=== PATIENT | female | born 1990 | race Caucasian/White ===

== ENCOUNTER 2017-10-03 19:19 | Emergency (ER) | payer BC ==
[2017-10-03 19:31] VITALS: BP 127/67; PULSE 94; TEMP 99.7; BMI 21.2
--- NOTE | 2017-10-03 20:33 | PDOC ---
History of Present Illness - General History Source: Patient, Family, Significant Other Exam Limitations: No Limitations - History of Present Illness Initial Comments: 10/03/17 20:46 The patient is a 27 year old female, accompanied by , with no significant past medical history, who presents to the emergency department with , sore throat, productive cough, generalized body aches, shortness of breath and subjective fever beginning this morning. The patient reports she has difficulty taking a deep breath secondary to pain on inspiration. The patient reports her (present in the ED) has similar symptoms beginning approx. 1 week ago. The patient reports visiting her niece this past weekend who was diagnosed with Step throat a couple of weeks ago. The patient reports she has a 3 month old baby at home who is up to date on vaccinations. She denies recent, chills, headache or dizziness. She denies recent nausea, vomit, diarrhea or constipation. She denies recent dysuria, frequency, urgency or hematuria. She denies recent chest pain. Allergies: NKA Primary Care Physician: Dr. Farzaneh Mathew <Maik Skinner - Last Filed: 10/03/17 21:06> <Tessa De Leon - Last Filed: 10/03/17 21:12> - General Chief Complaint: Cold Symptoms Stated Complaint: COUGH/SOB Time Seen by Provider: 10/03/17 19:21 Past History <Maik Skinner - Last Filed: 10/03/17 21:06> - Past Medical History COPD: No - Suicide/Smoking/Psychosocial Hx Smoking History: Never smoked Have you smoked in the past 12 months: No Number of Cigarettes Smoked Daily: 0 Information on smoking cessation initiated: No Hx Alcohol Use: No Drug/Substance Use Hx: No Substance Use Type: None <Tessa De Leon - Last Filed: 10/03/17 21:12> - Past Medical History Allergies/Adverse Reactions: Allergies Allergy/AdvReac Type Severity Reaction Status Date / Time No Known Allergies Allergy Unverified 10/03/17 19:32 Home Medications: Ambulatory Orders Oseltamivir Phosphate [Tamiflu] 75 mg PO BID #10 capsule 10/03/17 Review of Systems - Review of Systems Comments:: 10/03/17 20:47 CONSTITUTIONAL: Present: +Subjective fever. Absent: no chills, EYES: Absent: visual changes ENT: Present: +Sore throat Absent: ear pain CARDIOVASCULAR: Absent: chest pain, no palpitations RESPIRATORY: Present: +Productive cough. +SOB. GI: Absent: abdominal pain, no nausea, no vomiting, no constipation, no diarrhea GENITOURINARY: Absent: dysuria, no frequency, no hematuria MUSKULOSKELETAL: Present: +Generalized body aches. SKIN: Absent: rash NEURO: Absent: headache <Rm Skinnerian - Last Filed: 10/03/17 21:06> *Physical Exam - Vital Signs Last Vital Signs Temp Pulse Resp BP Pulse Ox 99.7 F H 94 H 14 127/67 100 10/03/17 19:28 10/03/17 19:28 10/03/17 19:28 10/03/17 19:28 10/03/17 19:28 - Physical Exam Comments: 10/03/17 21:06 GENERAL: The patient is awake, alert, and fully oriented, in no acute distress. HEAD: Normal with no signs of trauma. EYES: Pupils equal, round and reactive to light, extraocular movements intact, sclera anicteric, conjunctiva clear with no pallor. ENT: +Pharyngeal erythema without exudates. Ears normal, nares patent, oropharynx clear without exudates. Moist mucous membranes. NECK: Normal range of motion, supple without lymphadenopathy, JVD, or masses. LUNGS: Breath sounds equal, clear to auscultation bilaterally. No wheeze/ crackles. HEART: Regular rate and rhythm, normal S1 and S2 without murmur or rub. ABDOMEN: Soft/nontender/nondistended. BS wnl. No guarding or rebound. No palpable masses. No hepatosplenomegaly. EXTREMITIES: Normal range of motion, no edema. No clubbing or cyanosis. No cords, erythema, or tenderness. NEUROLOGICAL: Cranial nerves II through XII grossly intact. Normal speech, normal gait. PSYCH: Normal mood, normal affect. SKIN: Warm, Dry, normal turgor, no rashes or lesions noted. <Maik Skinner - Last Filed: 10/03/17 21:06> - Vital Signs Last Vital Signs Temp Pulse Resp BP Pulse Ox 99.7 F H 94 H 14 127/67 100 10/03/17 19:28 10/03/17 19:28 10/03/17 19:28 10/03/17 19:28 10/03/17 19:28 <Tessa De Leon - Last Filed: 10/03/17 21:12> *DC/Admit/Observation/Transfer - Attestations Scribe Attestion: 10/03/17 20:48 Documentation prepared by Maik Skinner, acting as medical supervisor for Tessa De Leon MD. <Maik Skinner - Last Filed: 10/03/17 21:06> <Tessa De Leon - Last Filed: 10/03/17 21:12> Diagnosis at time of Disposition: Acute viral syndrome - Discharge Dispostion Disposition: HOME Condition at time of disposition: Stable - Referrals Referrals: Farzaneh aMthew MD [Primary Care Provider] - - Patient Instructions Printed Discharge Instructions: DI for Viral Syndrome Additional Instructions: Rest; drink plenty of fluids Tamiflu 75 mg twice daily for 5 days Do not breast feed while on Tamiflu Return or see her doctor if you have shortness of breath or high fever - Post Discharge Activity
== END 2017-10-03 21:21 | disposition home or self-care (01) ==
LOC: FER 19:19
DX: B34.9 Viral infection, unspecified (principal)
CPT/HCPCS: 87070; 87430; 87804; 99282-25

== ENCOUNTER 2018-08-06 12:41 | Emergency (ER) | payer BC ==
--- NOTE | 2018-08-06 13:14 | PDOC ---
History of Present Illness - General Stated Complaint: VAGINAL BLEEDING Time Seen by Provider: 08/06/18 13:00 - History of Present Illness Initial Comments: 08/06/18 13:11 28 yo , LMP 05/28/18, at 10 wga, confirmed by TVUS with no significant pmh who p/w vaginal bleeding in . 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 Reports blood trickling down leg. Patient last intercourse yesterday evening with . Denies dyspareurnia, or vaginal bleeding at that time. Patient reports HGUO. Denies abdominal trauma. Patient denies N/V, F,C, CP, SOB, urinary complaints, abdominal pain, diarrhea, constipation, hematuria, vaginal discharge/burning/itching, BPR, lightheadedness, weakness, sensory changes. PMHx: as noted above. H/o x 1. ROS: as noted SHx: Denies Etoh, IVDA, Tobacco use Allergies: NKDA Past History - Past Medical History Allergies/Adverse Reactions: Allergies Allergy/AdvReac Type Severity Reaction Status Date / Time No Known Allergies Allergy Unverified 10/03/17 19:32 Home Medications: Ambulatory Orders Cephalexin Monohydrate [Keflex -] 500 mg PO BID #13 capsule MDD 2 tab 08/06/18 95/Iron Fum/Folic/Dha [ + Dha Combo Pack] 1 each PO DAILY 08/06 COPD: No - Suicide/Smoking/Psychosocial Hx Smoking History: Never smoked Have you smoked in the past 12 months: No Number of Cigarettes Smoked Daily: 0 Hx Alcohol Use: No Drug/Substance Use Hx: No Substance Use Type: None Review of Systems - Review of Systems Comments:: 08/06/18 13:13 GENERAL/CONSTITUTIONAL: No fever or chills. No weakness. HEAD, EYES, EARS, NOSE AND THROAT: No change in vision. No ear pain or discharge. No sore throat. CARDIOVASCULAR: No chest pain or shortness of breath RESPIRATORY: No cough, wheezing, or hemoptysis. GASTROINTESTINAL: No nausea, vomiting, diarrhea or constipation. GENITOURINARY: + Vaginal bleeding. No dysuria, frequency, or change in urination. MUSCULOSKELETAL: No joint or muscle swelling or pain. No neck or back pain. SKIN: No rash NEUROLOGIC: No headache, vertigo, loss of consciousness, or change in strength/ sensation. ENDOCRINE: No increased thirst. No abnormal weight change HEMATOLOGIC/LYMPHATIC: No anemia, easy bleeding, or history of blood clots. ALLERGIC/IMMUNOLOGIC: No hives or skin allergy. *Physical Exam - Physical Exam Comments: 08/06/18 13:13 GENERAL: Awake, alert, and fully oriented, in no acute distress HEAD: No signs of trauma, normocephalic, atraumatic EYES: PERRLA, EOMI, sclera anicteric, conjunctiva clear ENT: Hearing grossly normal, nares patent, oropharynx clear without exudates. Moist mucosa NECK: Normal ROM, supple, no lymphadenopathy, JVD, or masses LUNGS: No distress, speaks full sentences, clear to auscultation bilaterally HEART: Regular rate and rhythm, normal S1 and S2, no murmurs, rubs or gallops, peripheral pulses normal and equal bilaterally. ABDOMEN: Soft, nontender, normoactive bowel sounds. No guarding, no rebound. No masses GENITOURINARY: Nml appearing external genitalia. Moderate blood in vaginal vault , with absent pooling. Cervical os closed. Absent CMT on BM. Neg adenexal ttp. EXTREMITIES : Normal inspection, Normal range of motion, no edema. No clubbing or cyanosis. SKIN: Warm, Dry, normal turgor, no rashes or lesions noted ED Treatment Course - LABORATORY CBC & Chemistry Diagram: 08/06/18 13:40 08/06/18 13:40 Medical Decision Making - Medical Decision Making 08/06/18 13:43 28 yo , LMP 05/28/18, at 10 wga, confirmed by TVUS with no significant pmh who p/w vaginal bleeding in . VSS, AF. + Blood in vaginal vault. Cervical os closed. Will assess for viable IUP. Will consider threatened , placenta previa, ectopic , HUGO. Patient with absent evidence of hypovolemia or poor perfusion. Keyboard Instrument Repairer Juan Anne. Ed Course: CBC, CMP, HCG, T&S, UA NS 08/06/18 13:48 08/06/18 14:55 CBC: 11.6 CBC,CMP: Unremarkable HC 08/06/18 15:10 Transabdominal U/S: FHR 185, 10 w4d, mild to mod HUGO. 08/06/18 15:27 Called [facility] , awaiting call back 08/06/18 15:28 Dr. Juan Shah not in office. Dr. Artur Dorantes made aware, agrees U/S and patient status stable. Patient to f/u with Keyboard Instrument Repairer this week. Preferably f/u Sunday or early next week. UA: Trace LE, 4 WBC, Keflex sent to pharmacy Patient stable and ready for d/c with return precautions. Patient agrees to f/u with Keyboard Instrument Repairer. *DC/Admit/Observation/Transfer Diagnosis at time of Disposition: Vaginal bleeding - Discharge Dispostion Condition at time of disposition: Stable - Referrals Referrals: Farzaneh Mathew MD [Primary Care Provider] - - Patient Instructions Printed Discharge Instructions: DI for Vaginal Bleeding Additional Instructions: Please return to the emergency department with any new or worsening symptoms or concerns. Please follow up with your primary care physician within 72 hours. Please f/u with Keyboard Instrument Repairer this week or next week. Please take Keflex two times a day. - Post Discharge Activity - Attestations Physician Attestion: 08/06/18 13:14 I attest to the information provided in this note.
[2018-08-06 13:15] VITALS: TEMP 97.9; BMI 22.8
[2018-08-06] MEDS ORDERED: SODIUM CHLORIDE 500 ML IV STA (13:23)
[2018-08-06 13:46] LABS: BASO % 0.4 % (0-2.0); EOS % 0.3 % (0-4.5); HEMATOCRIT 40.3 % (32.4-45.2); HEMOGLOBIN 13.1 GM/dL (10.7-15.3); LYMPH % 15.8 % (8-40); MCH 27.2 pg (25.7-33.7); MCHC 32.6 g/dl (32.0-36.0); MEAN CELL VOLUME 83.5 fl (80-96); MEAN PLT VOLUME 8.9 fl (7.5-11.1); NEUT % 79.5 % (42.8-82.8); PLATELET COUNT 215 K/MM3 (134-434); RBC 4.83 M/mm3 (3.60-5.2); RDW 13.2 % (11.6-15.6); WHITE BLOOD COUNT 11.6 K/mm3 (4.0-10.0)
--- NOTE | 2018-08-06 14:48 | PDOC ---
Attending Attestation - Resident Resident Name: Quintin Sky - ED Attending Attestation I have performed the following: I have examined & evaluated the patient, The case was reviewed & discussed with the resident, I agree w/resident's findings & plan, Exceptions are as noted - HPI HPI: 08/06/18 14:43 The patient is a 28 year old female, , approximately 10 weeks , with a no significant past medical history who presents to the emergency department with family for evaluation of vaginal bleeding in . She states she felt blood trickling down her leg about 20 minutes prior to arrival. She denies having trauma or recent sexual intercourse. She denies abdominal pain or cramping. LMP 05/28/18. She reportedly had normal US for this current . The patient denies chest pain, shortness of breath, headache and dizziness. The patient denies fever, chills, nausea, vomit, diarrhea and constipation. The patient denies dysuria, frequency, urgency and hematuria. 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 Vitals wnl, exam with some dark blood in vaginal vault, but no pooling per Dr. Sky. Labs wnl. UA and US pending. Likely threatened ab vs subchorionic hemorrhage. Pt comfortable now, no further bleeding in ED. 08/06/18 17:18 US with 11week preg with normal FHR +subchorionic hematoma Dr. Sky has discussed with pt's OB, recommends outpt f/u, nothing to do for now REsults discussed with pt and her UA with trace LE, 4 WBCs, possible mild UTI WIll treat with keflex Pt is well appearing, no further bleeding in the ED Requests DC home I discussed the physical exam findings, ancillary test results and final diagnoses with the patient. I answered all of the patient's questions. The patient was satisfied with the care received and felt comfortable with the discharge plan and treatment plan. The patient will call their primary care physician within 24 hours to arrange follow-up and will return to the Emergency Department with any new, persistent or worsening symptoms.
[2018-08-06 14:52] LABS: ALBUMIN 3.8 g/dl (3.4-5.0); ALK PHOS 60 U/L (45-117); ANION GAP 7 MMOL/L (8-16); BILIRUBIN,TOTAL 0.8 mg/dL (0.2-1); BLOOD UREA NITROGEN 8 mg/dL (7-18); CALCIUM 9.2 mg/dL (8.5-10.1); CHLORIDE 103 mmol/L (98-107); CO2 24 mmol/L (21-32); CREATININE 0.5 mg/dL (0.55-1.3); GLUCOSE,RANDOM 103 mg/dL (74-106); POTASSIUM 3.6 mmol/L (3.5-5.1); SGOT/AST 10 U/L (15-37); SGPT/ALT 17 U/L (13-61); SODIUM 135 mmol/L (136-145); TOT PROT 7.5 g/dl (6.4-8.2)
[2018-08-06 15:52] LABS: URINE APPEARANCE CLEAR; URINE BILIRUBIN NEGATIVE (<2.0 mg/dL); URINE COLOR YELLOW; URINE GLUCOSE (UA) 1+ (NEGATIVE); URINE KETONE TRACE (NEGATIVE); URINE LEUK ESTERASE TRACE (NEGATIVE); URINE NITRITE NEGATIVE (NEGATIVE); URINE PROTEIN 1+ (NEGATIVE); URINE UROBILINOGEN NEGATIVE mg/dL (0.2-1.0)
[2018-08-06 17:09] LABS: EPI CELLS RARE /HPF (FEW); URINE MUCUS MANY
[2018-08-06] MEDS ORDERED: CEPHALEXIN MONOHYDRATE 500 MG CAPSULE (UD) PO ONE (17:17)
[2018-08-06] MEDS ORDERED: CEPHALEXIN MONOHYDRATE 250 MG CAPSULE (FP) ONE (17:34)
[2018-08-07 22:55] VITALS: BP 125/67; PULSE 72
== END 2018-08-06 17:40 | disposition home or self-care (01) ==
LOC: JER 12:41
PROC: 3E0337Z Introduction of Electrolytic and Water Balance Substance into Peripheral Vein, Percutaneous Approach (ICD-10-PCS; principal; 2018-08-06)
DX: O26.891 Other specified pregnancy related conditions, first trimester (principal); O46.91 Antepartum hemorrhage, unspecified, first trimester; O23.41 Unspecified infection of urinary tract in pregnancy, first trimester; Z3A.11 11 weeks gestation of pregnancy
CPT/HCPCS: 36415; 76801-TC; 80053; 81003; 81015; 84702; 85025; 86850; 86900; 86901; 87086; 99283-25

== ENCOUNTER 2018-11-03 22:36 | Emergency (ER) | payer BC ==
--- NOTE | 2018-11-03 22:54 | PDOC ---
History of Present Illness - General History Source: Patient Exam Limitations: No Limitations - History of Present Illness Initial Comments: 11/03/18 23:19 A portion of this note was documented by scribe services under my direction. I have reviewed the details of the note, within reason, and agree with the documentation with the following case summary and management plan written by me. Patient treated in the ED. Nursing notes are reviewed and incorporated into the medical decision-making. Vital signs reviewed. Procedure note incision and drainage of abscess Abscess anesthetized with approximately 2 mL 1% lidocaine no epinephrine Abscess incised with #11 blade moderate amount of purulent discharge removed. Packing placed after loculations were broken up. Patient tolerated well Dressing placed over abscess <Val Carias I - Last Filed: 11/03/18 23:19> - General History Source: Patient Exam Limitations: No Limitations - History of Present Illness Initial Comments: 11/03/18 23:21 The patient is a 28 year old female with no significant past medical history who presents to the ED with an abscess. Patient reports an abscess in her right armpit. She states the abscess is erythematous, painful and warm. Patient notes she had an abscess in her right armpit two weeks ago but states it resolved on its own. Denies fever or chills. Denies any other symptoms. PAST MEDICAL HISTORY: no significant history PAST SURGICAL HISTORY: no significant history FAMILY HISTORY: no pertinent history SOCIAL HISTORY: Pt lives with family and is employed. MEDICATIONS: reviewed ALLERGIES: As per nursing notes General: No fevers or chills, no weakness, no weight loss HEENT: No change in vision. No sore throat,. No ear pain Cardiovascular: No chest pain or shortness of breath Respiratory:No cough, or wheezing. Gastrointestinal: no nausea, vomiting, diarrhea or constipation, No rectal bleeding Genitourinary: No dysuria, hematuria, or frequency Musculoskeletal: No joint or muscle pain or swelling Neurologic: No headache, vertigo, dizziness or loss of consciousness Psychiatric: nor depression Skin:+ abscess. No rashes or easy bruising Endocrine: no increased thirst or abnormal weight change Allergic: no skin or latex allergy All other systems reviewed and normal GENERAL: The patient is awake, alert, and fully oriented, in no acute distress. HEAD: Normal with no signs of trauma. EYES: Pupils equal, round and reactive to light, extraocular movements intact, sclera anicteric, conjunctiva clear. EXTREMITIES: Normal range of motion, no edema. NEUROLOGICAL: Normal speech, normal gait. PSYCH: Normal mood, normal affect. SKIN: + 1x2 cm palpable collection in the axilla with some surrounding erythema and warmth, no discharge. Tenderness on palpation <Yasmany Carranza - Last Filed: 11/03/18 23:21> - General Chief Complaint: Pain, Acute Stated Complaint: BOIL UNDER RIGHT ARM/23 WEEKS Time Seen by Provider: 11/03/18 22:48 Past History - Past Medical History COPD: No - Reproductive History (#): 2 Para: 1 Therapeutic (s) & number: No Spontaneous : 0 - Suicide/Smoking/Psychosocial Hx Smoking History: Never smoked Have you smoked in the past 12 months: No Number of Cigarettes Smoked Daily: 0 Hx Alcohol Use: No Drug/Substance Use Hx: No Substance Use Type: None <Val Carias I - Last Filed: 11/03/18 23:19> <Yasmany Carranza - Last Filed: 11/03/18 23:21> - Past Medical History Allergies/Adverse Reactions: Allergies Allergy/AdvReac Type Severity Reaction Status Date / Time No Known Allergies Allergy Unverified 10/03/17 19:32 Home Medications: Ambulatory Orders 95/Iron Fum/Folic/Dha [ + Dha Combo Pack] 1 each PO DAILY 08/06 *Physical Exam - Vital Signs Last Vital Signs Temp Pulse Resp BP Pulse Ox 98.2 F 86 16 112/75 100 11/03/18 22:58 11/03/18 22:58 11/03/18 22:58 11/03/18 22:58 11/03/18 22:58 <Yasmany Carranza - Last Filed: 11/03/18 23:21> Moderate Sedation - Procedure Monitoring Vital Signs: Procedure Monitoring Vital Signs Temperature 98.2 F 11/03/18 22:58 Pulse Rate 86 11/03/18 22:58 Respiratory Rate 16 11/03/18 22:58 Blood Pressure 112/75 11/03/18 22:58 O2 Sat by Pulse Oximetry (%) 100 11/03/18 22:58 <Yasmany Carranza - Last Filed: 02/17/19 23:21> *DC/Admit/Observation/Transfer - Discharge Dispostion Decision to Admit order: No <Val Carias I - Last Filed: 11/03/18 23:19> - Attestations Scribe Attestion: 11/03/18 23:21 Documentation prepared by Yasmany Carranza, acting as chief medical technologist for Val Carias MD <Yasmany Carranza - Last Filed: 11/03/18 23:21> Diagnosis at time of Disposition: Suppurative hidradenitis - Discharge Dispostion Disposition: HOME Condition at time of disposition: Stable - Patient Instructions Additional Instructions: Remove the gauze and the little piece of gauze that is in the boil tomorrow evening. She remove them start hot soaks as described by the doctor to the hot soaks 3 times a day for 20 minutes at a time for 3-4 days. After you've finish the hot soaks put a little bacitracin on it and a Band-Aid over it Return to the emergency department immediately with ANY new, persistent or worsening symptoms. Continue any medications as previously prescribed by your physician. You should follow up with your primary doctor as soon as possible regarding today's emergency department visit. . Please make sure your doctor reviews the results of your emergency evaluation. Thank you for coming to the Emergency Department today for your care. It was a pleasure to see you today. Please note that your evaluation is INCOMPLETE until you follow-up with your doctor.
[2018-11-03 23:01] VITALS: BP 112/75; PULSE 86; TEMP 98.2; BMI 24.3
== END 2018-11-03 23:22 | disposition home or self-care (01) ==
LOC: FER 22:36
PROC: 0H9BXZZ Drainage of Right Upper Arm Skin, External Approach (ICD-10-PCS; principal; 2018-11-03)
DX: O26.892 Other specified pregnancy related conditions, second trimester (principal); L02.411 Cutaneous abscess of right axilla; Z3A.23 23 weeks gestation of pregnancy
CPT/HCPCS: 99281-25

== ENCOUNTER 2018-11-16 22:31 | Emergency (ER) | payer BC ==
[2018-11-16 22:39] VITALS: BP 126/79; PULSE 74; TEMP 98.2; BMI 25.1
--- NOTE | 2018-11-16 23:28 | PDOC ---
History of Present Illness - History of Present Illness Initial Comments: 11/17/18 00:09 The patient is a 28 year old female, with no significant PMH, who presents to the emergency department with armpit abscess that occurred a few days ago. The patient's states patient had an abscess 2 weeks ago and came to the ER where the doctor drained it. states 3 new painful erythematous abscess returned to the patients right armpit a few days ago, no relief with heat pack. states patient is and is concerned that abscess might affect the baby. The patient denies any numbness or tingling. Denies chest pain, shortness of breath, headache and dizziness. Denies fever, chills, nausea. Allergies: NKDA Past surgical history: None reported Social history: None reported PCP: Farzaneh Mathew <Azael White - Last Filed: 11/17/18 00:09> <Tessa De Leon - Last Filed: 11/17/18 05:07> - General Chief Complaint: Abscess Boil Stated Complaint: ABSCESS Time Seen by Provider: 11/16/18 22:37 Past History <Azael White - Last Filed: 11/17/18 00:09> - Past Medical History COPD: No Other medical history: RECENT BOIL SAME AREA - Reproductive History (#): 2 Para: 1 Therapeutic (s) & number: No Spontaneous : 0 - Suicide/Smoking/Psychosocial Hx Smoking History: Never smoked Have you smoked in the past 12 months: No Number of Cigarettes Smoked Daily: 0 Hx Alcohol Use: No Drug/Substance Use Hx: No Substance Use Type: None <Tessa De Leon - Last Filed: 11/17/18 05:07> - Past Medical History Allergies/Adverse Reactions: Allergies Allergy/AdvReac Type Severity Reaction Status Date / Time No Known Allergies Allergy Unverified 10/03/17 19:32 Home Medications: Ambulatory Orders 95/Iron Fum/Folic/Dha [ + Dha Combo Pack] 1 each PO DAILY 08/06 Amoxicillin - [Amoxicillin 500mg Capsule -] 500 mg PO TID #15 capsule 11/16/18 Review of Systems - Review of Systems Comments:: 11/17/18 00:10 GENERAL/CONSTITUTIONAL: No fever or chills. No weakness. HEAD, EYES, EARS, NOSE AND THROAT: No change in vision. No ear pain or discharge. No sore throat. CARDIOVASCULAR: No chest pain or shortness of breath. RESPIRATORY: No cough, wheezing, or hemoptysis. GASTROINTESTINAL: No nausea, vomiting, diarrhea or constipation. GENITOURINARY: No dysuria, frequency, or change in urination. MUSCULOSKELETAL: No joint or muscle swelling or pain. No neck or back pain. SKIN: +painful abscess located to the armpit. NEUROLOGIC: No headache, vertigo, loss of consciousness, or change in strength/ sensation. ENDOCRINE: No increased thirst. No abnormal weight change. HEMATOLOGIC/LYMPHATIC: No anemia, easy bleeding, or history of blood clots. ALLERGIC/IMMUNOLOGIC: No hives or skin allergy. <Azael White - Last Filed: 11/17/18 00:09> *Physical Exam - Vital Signs Last Vital Signs Temp Pulse Resp BP Pulse Ox 98.2 F 74 16 126/79 97 11/16/18 22:32 11/16/18 22:32 11/16/18 22:32 11/16/18 22:32 11/16/18 22:32 - Physical Exam Comments: 11/17/18 00:10 GENERAL: Awake, alert, and fully oriented, in no acute distress HEAD: No signs of trauma EXTREMITIES: Normal range of motion, no edema. No clubbing or cyanosis. No cords, erythema, or tenderness NEUROLOGICAL: Cranial nerves II through XII grossly intact. Normal speech. SKIN:+Right axillary notable 3 tender 1cm x 1 cm erythematous nodules. None of which has discharge or fluctuance. No other edema or erythema. No other masses palpated within the axilla region <Azael White - Last Filed: 11/17/18 00:09> - Vital Signs Last Vital Signs Temp Pulse Resp BP Pulse Ox 98.2 F 74 16 126/79 97 11/16/18 22:32 11/16/18 22:32 11/16/18 22:32 11/16/18 22:32 11/16/18 22:32 <Tessa De Leon - Last Filed: 11/17/18 05:07> Moderate Sedation - Procedure Monitoring Vital Signs: Procedure Monitoring Vital Signs Temperature 98.2 F 11/16/18 22:32 Pulse Rate 74 11/16/18 22:32 Respiratory Rate 16 03/02/19 22:32 Blood Pressure 126/79 11/16/18 22:32 O2 Sat by Pulse Oximetry (%) 97 11/16/18 22:32 <Azael White - Last Filed: 11/17/18 00:09> - Procedure Monitoring Vital Signs: Procedure Monitoring Vital Signs Temperature 98.2 F 11/16/18 22:32 Pulse Rate 74 11/16/18 22:32 Respiratory Rate 16 11/16/18 22:32 Blood Pressure 126/79 11/16/18 22:32 O2 Sat by Pulse Oximetry (%) 97 11/16/18 22:32 <Tessa De Leon - Last Filed: 11/17/18 05:07> Progress Note - Progress Note Progress Note: Documentation has been prepared under my direction and personally reviewed by me in its entirety. I attest that this documented accurately reflects all work, treatment, procedures and medical decision making performed by me. <Tessa De Leon - Last Filed: 11/17/18 05:07> Medical Decision Making - Medical Decision Making As noted above, this 28-year-old woman who is 25 weeks with her second child presents with her with a several day history of painful nodules of the right axilla. Patient seen here 2 weeks ago and had drainage of similar lesion in the right axilla that had become abscessed. That had healed well but within the last few days, new nodules had arisen. Patient's is concerned about the development of new lesions. Patient speaks mainly [place] and her interprets for her. She states that she has some pain in the area but no other symptoms. Exam as noted. Clinical presentation most consistent with multiple carbuncles of right axilla. There is no fluctuance or drainage of any of the 3 lesions. It was explained to the patient and her that no incision and drainage was required at this time since abscess cavity had not formed. They are urged to continue warm packing of the area although had said that "it did not work". Patient will also be started on amoxicillin 500 mg 3 times a day. Follow-up will be with Dr. Mathew, patient's PMD. If area becomes more swollen or fluctuance/ drainage develops, they should return to the ER had expressed interest in understanding the etiology of skin infections in times of stress or hormonal changes. Explained to him that is at time of great changes within the body. The patient should talk to her remote medical coder; also, referral to infectious disease specialist (Dr. Puga) provided to the patient and her <Tessa De Leon - Last Filed: 11/17/18 05:07> *DC/Admit/Observation/Transfer - Attestations Scribe Attestion: 11/17/18 00:11 Documentation prepared by Azael White, acting as director medical affairs for Tessa De Leon MD. <Azael White - Last Filed: 11/17/18 00:09> <Tessa De Leon - Last Filed: 11/17/18 05:07> Diagnosis at time of Disposition: Furuncle of axilla Qualifiers: Laterality: right Qualified Code(s): L02.421 - Furuncle of right axilla - Discharge Dispostion Disposition: HOME Condition at time of disposition: Stable - Prescriptions Prescriptions: Amoxicillin - [Amoxicillin 500mg Capsule -] 500 mg PO TID #15 capsule - Referrals Referrals: Farzaneh Mathew MD [Primary Care Provider] - 3 days Omi Puga MD [Staff Physician] - - Patient Instructions Printed Discharge Instructions: Boil Additional Instructions: Warm packs to right armpit at least 3 times a day (15 minutes each time) Amoxicillin 500 mg 3 times a day 5 days Return to ER if boils become larger or begin to drain Follow-up with Dr. Mathew within the next 3-4 days Consider following up with infectious disease doctor if you have concerns regarding skin infections (Dr Puga) - Post Discharge Activity
== END 2018-11-16 23:57 | disposition home or self-care (01) ==
LOC: FER 22:31
DX: O26.892 Other specified pregnancy related conditions, second trimester (principal); Z3A.25 25 weeks gestation of pregnancy; L02.421 Furuncle of right axilla
CPT/HCPCS: 99281-25